=== PATIENT | female | born 1960 | race Caucasian/White ===

== ENCOUNTER → 2017-01-07 | Outpatient (CLI) | payer BC | LOC: MW.CHFP 08:19 | PROVIDERS: ATTEND Nurse Practitioner Family | DX: J00 Acute nasopharyngitis [common cold] (principal) | CPT/HCPCS: 36415; 85025 ==

== ENCOUNTER 2018-09-18 22:00 | Emergency (ER) | payer BC ==
[2018-09-18 22:12] VITALS: BP 144/62
[2018-09-18] MEDS ORDERED: Albuterol/Ipratropium 3.0-0.5 MG/3 ML Neb Soln NEB ONE (23:10)
--- NOTE | 2018-09-18 23:11 | EDM.PDOC ---
ED HPI GENERAL MEDICAL PROBLEM - General Chief Complaint: Respiratory Problem Stated Complaint: PT HAS COLD Time Seen by Provider: 09/18/18 23:07 - History of Present Illness INITIAL COMMENTS - FREE TEXT/NARRATIVE: HISTORY AND PHYSICAL: History of present illness: Patient's 58-year-old white female presents with concern of cough congestion and mild shortness of breath over last several days she did use an inhaler with some improvement she has used one in the past but denies COPD or history of asthma. She denies fever chills nausea vomiting or other concern patient has history of hypertension she has no known cardiac disease Review of systems: As per history of present illness and below otherwise all systems reviewed and negative. Past medical history: As per history of present illness and as reviewed below otherwise noncontributory. Surgical history: As per history of present illness and as reviewed below otherwise noncontributory. Social history: No reported history of drug or alcohol abuse. Family history: As per history of present illness and as reviewed below otherwise noncontributory. Physical exam: HEENT: Atraumatic, normocephalic, pupils reactive, negative for conjunctival pallor or scleral icterus, mucous membranes moist, throat clear, neck supple, nontender, trachea midline. Lungs: Coarse with an extrarenal wheezing noted, breath sounds equal bilaterally , chest nontender. Heart: S1S2, regular, negative for clicks, rubs, or JVD. Abdomen: Soft, nondistended, nontender. Negative for masses or hepatosplenomegaly. Negative for costovertebral tenderness. Pelvis: Stable nontender. Genitourinary: Deferred. Rectal: Deferred. Extremities: Atraumatic, negative for cords or calf pain. Neurovascular unremarkable. Neuro: Awake, alert, oriented. Cranial nerves II through XII unremarkable. Cerebellum unremarkable. Motor and sensory unremarkable throughout. Exam nonfocal. Diagnostics: Influenza screen chest x-ray Therapeutics: Albuterol ipratropium nebulizer Impression: #1 tracheal bronchitis #2 rule out reactive airway disease Definitive disposition and diagnosis as appropriate pending reevaluation and review of above. - Related Data Allergies Allergy/AdvReac Type Severity Reaction Status Date / Time No Known Allergies Allergy Verified 09/18/18 22:08 Home Meds: Home Meds Bimatoprost [LUMIGAN 0.01% Ophth Soln] 1 drop EYEBOTH DAILY 10/25/14 [History] Dorzolamide/Timolol [Cosopt 2%-0.5% Ophth Soln] 1 drop EYEBOTH BID 10/25/14 [ History] Lisinopril 20 mg PO DAILY 10/25/14 [History] Simvastatin [Zocor] 20 mg PO DAILY 10/25/14 [History] metFORMIN [Glucophage] 500 mg PO BIDMEALS 09/18/18 [History] Past Medical History HEENT History: Reports: Impaired Vision, Other (See Below) Other HEENT History: wears glasses Cardiovascular History: Reports: Hypertension Gastrointestinal History: Reports: None MACHINE STEMMER History: Reports: Endocrine/Metabolic History: Reports: Other (See Below) Other Endocrine/Metabolic History: pre-diabetic - Infectious Disease History Infectious Disease History: Reports: Chicken Pox, Measles - Past Surgical History HEENT Surgical History: Reports: Tonsillectomy Cardiovascular Surgical History: Reports: None GI Surgical History: Reports: Appendectomy Endocrine Surgical History: Reports: None Social & Family History - Family History Family Medical History: Noncontributory - Tobacco Use Smoking Status *Q: Never Smoker Second Hand Smoke Exposure: No - Caffeine Use Caffeine Use: Reports: Soda - Recreational Drug Use Recreational Drug Use: No ED ROS GENERAL - Review of Systems Review Of Systems: ROS reveals no pertinent complaints other than HPI. ED EXAM, GENERAL - Physical Exam Exam: See Below (dictation) Course - Vital Signs Last Recorded V/S: Last Vital Signs Temp 35.1 C L 09/18/18 22:06 Pulse 81 09/18/18 22:06 Resp 20 09/18/18 22:06 BP 144/62 H 09/18/18 22:06 Pulse Ox 96 09/18/18 22:06 - Orders/Labs/Meds Meds: Medications Discontinued Medications Generic Name Dose Route Start Last Admin Trade Name Freq PRN Reason Stop Dose Admin Albuterol/Ipratropium 3 ml 09/18/18 23:10 09/18/18 23:15 Duoneb 3.0-0.5 Mg/3 Ml NEB 09/18/18 23:11 3 ml ONETIME ONE Administration Departure - Departure Time of Disposition: 23:44 Disposition: Home, Self-Care 01 Condition: Good Clinical Impression: Tracheobronchitis, Reactive airway disease - Discharge Information Referrals: PCP,None [Primary Care Provider] - Forms: ED Department Discharge Additional Instructions: The following information is given to patients seen in the emergency department who are being discharged to home. This information is to outline your options for follow-up care. We provide all patients seen in our emergency department with a follow-up referral. The need for follow-up, as well as the timing and circumstances, are variable depending upon the specifics of your emergency department visit. If you don't have a primary care physician on staff, we will provide you with a referral. We always advise you to contact your personal physician following an emergency department visit to inform them of the circumstance of the visit and for follow-up with them and/or the need for any referrals to a consulting specialist. The emergency department will also refer you to a specialist when appropriate. This referral assures that you have the opportunity for followup care with a specialist. All of these measure are taken in an effort to provide you with optimal care, which includes your followup. Under all circumstances we always encourage you to contact your private physician who remains a resource for coordinating your care. When calling for followup care, please make the office aware that this follow-up is from your recent emergency room visit. If for any reason you are refused follow-up, please contact the [facility] emergency department at and asked to speak to the emergency department charge nurse. Augmentin albuterol Medrol as prescribed follow-up private medical doctor call to schedule routine appointment and return as needed as discussed
--- NOTE | 2018-09-18 23:36 | CR ---
Indication: Cough Technique: Chest 1 view Comparison: October 25, 2014 Findings/Impression: Cardiovascular and mediastinum: Heart size and vasculature are normal in caliber and appearance. Mediastinum is within normal limits. Lungs and pleural space: Lungs are clear. No sign of infiltrate or mass. No sign of pleural effusion. No pneumothorax. Bones and soft tissues: Internal fixation hardware projects over the cervical thoracic junction. Dictated by Marielle Bishop MD @ Sep 18 2018 11:33PM Signed by Dr. Marielle Bishop @ Sep 18 2018 11:34PM
== END 2018-09-18 23:59 | disposition home or self-care (01) ==
LOC: MW.ED 22:00
DX: J45.909 Unspecified asthma, uncomplicated (principal); I10 Essential (primary) hypertension; Z79.899 Other long term (current) drug therapy
CPT/HCPCS: 71045; 71045-26; 87804; 99283; J7620-GY

== ENCOUNTER 2022-10-10 07:07 | Day surgery (SDC) | payer BC ==
[~2022-10-10 07:07] MED LIST: Lactated Ringers 1,000 ML IV SCH
[2022-10-10] MEDS ORDERED: Propofol 200 MG/20 ML SDV ONE (07:28)
[2022-10-10] MEDS ORDERED: fentaNYL 100 MCG/2 ML SDV ONE (07:28)
[2022-10-10 09:33] VITALS: PULSE 67
[2022-10-10 09:45] VITALS: BP 125/66
== END 2022-10-10 10:00 | disposition home or self-care (01) ==
LOC: MW.SDS 07:07
PROVIDERS: ATTEND Surgery
DX: K57.30 Diverticulosis of large intestine without perforation or abscess without bleeding (principal); K64.8 Other hemorrhoids; J40 Bronchitis, not specified as acute or chronic; R73.09 Other abnormal glucose; E66.9 Obesity, unspecified; E78.00 Pure hypercholesterolemia, unspecified; I10 Essential (primary) hypertension; R73.03 Prediabetes; Z79.899 Other long term (current) drug therapy; Z98.890 Other specified postprocedural states; Z68.38 Body mass index [BMI] 38.0-38.9, adult; Z87.891 Personal history of nicotine dependence; Z79.84 Long term (current) use of oral hypoglycemic drugs
CPT/HCPCS: 45378; J2704; J3010; J7120